=== PATIENT | male | born 1975 | race Caucasian/White ===

== ENCOUNTER 2018-04-30 19:47 | Emergency (ER) | payer SELFPAY ==
[~2018-04-30] VITALS: Ht 167.6 cm; Wt 73.8 kg
[2018-04-30 19:49] VITALS: BP 139/56; PULSE 82; RESP 19; Ht 167.6 cm; Wt 73.8 kg
[2018-04-30] MEDS ORDERED: FAMOTIDINE 20 MG TAB PO ONE (21:00)
[2018-04-30] MEDS ORDERED: DEXAMETHASONE 10 MG/ML 1 ML INJ IM ONE (21:00)
[2018-04-30] MEDS ORDERED: DIPHENHYDRAMINE 25 MG CAP PO ONE (21:00)
--- NOTE | 2018-04-30 21:01 | ERD ---
ER Documentation Chief Complaint Chief Complaint ALLERGY RX; POSS REACTION TO PORK X3DAYS AGO; NO RESP DISTRESS HPI This is a 42-year-old male presents emergency department with complaints of generalized rashes that started last . Patient stated that this started after eating a pork. Denies headache, head injury, loss of consciousness, dizziness, neck pain, neck stiffness, throat pain, difficulty swallowing, difficulty breathing lying flat, shoulder pain, chest pain, back pain, abdominal pain, nausea, vomiting, constipation, diarrhea, urinary symptoms, loss of bowel and bladder control, trauma, injury, falls, difficulty walking due to pain, numbness or tingling sensation, calf pain, recent travel, recent major surgery in the last 3 weeks, calf pain, recent long travel, recent exposure to any illness, recent antibiotic use in the last 3 months, fever, chills, seizures. Past medical history: Denies. Surgical history: Denies. Social: Denies smoking, use of alcoholic beverages, use of illegal drugs. ROS All systems reviewed and are negative except as per history of present illness. Medications Home Meds Active Scripts Loratadine (Loratadine) 10 Mg Capsule, 10 MG PO DAILY, #30 CAP Prov:PASILABAN,DUDLEYAR F 04/30/18 Epinephrine (Epipen 2-Gutierrez) 0.3 Mg/0.3 Ml Pen.injctr, 1 EA INJ ONCE PRN for ALLERGIC REACTION, #1 EA Prov:PASILABAN,DUDLEYAR F 04/30/18 Hydroxyzine Hcl* (Hydroxyzine Hcl*) 50 Mg Tablet, 50 MG PO Q6H PRN for ITCHING, #30 TAB Prov:PASILABAN,DUDLEYAR F 04/30/18 Famotidine* (Pepcid*) 20 Mg Tablet, 40 MG PO DAILY for 30 Days, TAB Prov:PASILABAN,KLAR F 04/30/18 Prednisone* (Prednisone*) 20 Mg Tab, 40 MG PO DAILY for 2 Days, TAB Prov:PASILABAN,KLAR F 04/30/18 Allergies Allergies: Coded Allergies: No Known Allergy (Unverified , 04/30/18) PMhx/Soc Medical and Surgical Hx: pt denies Medical Hx History of Surgery: Yes (neck) Anesthesia Reaction: No Hx Neurological Disorder: No Hx Respiratory Disorders: No Hx Cardiac Disorders: No Hx Psychiatric Problems: No Hx Miscellaneous Medical Probl: No Hx Alcohol Use: Yes (occacionally) Hx Substance Use: No Hx Tobacco Use: No Smoking Status: Never smoker Physical Exam Vitals Vital Signs Date Temp Pulse Resp B/P (MAP) Pulse Ox O2 O2 Flow FiO2 Time Delivery Rate 04/30/18 98.3 82 19 139/56 98 19:49 (83) Physical Exam Const: No acute distress Head: Atraumatic Eyes: Normal Conjunctiva ENT: Normal External Ears, Nose and Mouth. Throat/lips: No lips/tongue swelling. Able to control tongue movement. No drooling. No facial swelling. No airway obstruction. No tripoding. Neck: Full range of motion. No meningismus. Resp: Clear to auscultation bilaterally Cardio: Regular rate and rhythm, no murmurs Abd: Soft, non tender, non distended. Normal bowel sounds Skin: No petechiae. Has generalized hives to chest, back, bilateral upper and lower extremities, including the facial area. Back: No midline or flank tenderness Ext: No cyanosis, or edema Neur: Awake and alert. No neurological deficits. Psych: Normal Mood and Affect Results 24 hrs Current Medications Medications Dose Sig/Carlee Start Time Status Last (Trade) Ordered Route PRN Stop Time Admin Dose Reason Admin Famotidine 40 mg ONCE ONCE 04/30/18 DC 04/30/18 (Pepcid) PO 21:00 21:08 04/30/18 21:01 25 mg ONCE ONCE 04/30/18 DC 04/30/18 Diphenhydrami PO 21:00 21:08 ne HCl 04/30/18 21:01 (Benadryl) 10 mg ONCE ONCE 04/30/18 DC 04/30/18 Dexamethasone IM 21:00 21:08 (Decadron) 04/30/18 21:01 Procedures/MDM Diagnostic tests: Clinical exam. Treatment: Dexamethasone IM. Pepcid p.o. Benadryl p.o. Re-evaluation: Hives has decreased tremendously. No drooling. No vomiting. No tripoding. Lung sounds are clear to auscultation. Stated that he feels much better at this time. Patient and family member stated that they are comfortable going home. Differential diagnosis I have low suspicion for anaphylactic shock, angioedema, Betancur-Carlos syndrome, shingles, herpes. Final diagnosis: Allergic reaction. Hives. Prescription: Prednisone. Pepcid. Claritin daily. Benadryl. Follow-up with PCP in the next 24-48 hours. PCP to do an allergy test. PCP to refer patient to assurance senior manager and/or medical record specialist. Come back here in the emergency department for any new symptoms or any worsening symptoms. All questions and concerns were answered. Patient and family members verbalized understanding and agreed with plan of care. Hemodynamically stable on discharge. Departure Diagnosis: Primary Impression: Allergic reaction Additional Impression: Rash Condition: Stable Additional Instructions: Follow-up with PCP in the next 24-48 hours. PCP to do an allergy test. PCP to refer patient to assurance senior manager and/or medical record specialist. Come back here in the emergency department for any new symptoms or any worsening symptoms. VALERIE MEJÍA Apr 30, 2018 21:01
[2018-04-30] MEDS ORDERED: PRED20TA PO (21:19)
[2018-04-30] MEDS ORDERED: FAMO-96 PO (21:20)
[2018-04-30] MEDS ORDERED: HYDR50TA15 PO (21:20)
[2018-04-30] MEDS ORDERED: EPIN0.3P4 INJ (21:20)
[2018-04-30] MEDS ORDERED: LORA10CA9 PO (21:21)
== END 2018-04-30 21:37 | disposition home or self-care (01) ==
LOC: FTE 19:47
DX: T78.1XXA Other adverse food reactions, not elsewhere classified, initial encounter (principal); L50.9 Urticaria, unspecified
CPT/HCPCS: 96372; 99284; J1100